=== PATIENT | female | born 1985 | race Hispanic/Latino ===

== ENCOUNTER 2018-01-06 22:02 | Day surgery (SDC) | payer OTHER ==
[2018-01-06 22:40] VITALS: BP 134/89; TEMP 99; BMI 38.4
--- NOTE | 2018-01-06 23:16 | PDOC.LDHP ---
Labor and Delivery H&P Chief complaint: contractions HPI: 32 y/o at 37w5d, patient of Dr. Jones, presents with ctx every 5-6 mins since after her appointment at 2pm. Was seen in clinic and reportedly 4-5/- 3 at that time. Denies VB, LOF, or decreased FM. ROS neg for HEENT, cv, pulm, gi, gu, neuro, psych, musculoskeletal, skin, or constitutional symptoms other than mentioned above. OB History Details: 2 prior term SVDs Current complications: none Past Medical History: None Current medications: pre- vitamins Previous surgical history: none Allergies/Adverse Reactions: Allergies Allergy/AdvReac Type Severity Reaction Status Date / Time cephalexin [From Keflex] Allergy Intermediate Hives Verified 01/06/18 22:34 - Physical Exam Vital signs reviewed and normal: yes General: NAD, resting Lungs: nonlabored breathing Abdomen: gravid Extremeties: no edema FHT: category 1 (145, mod variability, + accels, no decels) [place] contractions every: 5-6 mins - Vaginal Exam cm dilated: 4 Effacement: 50% Station: -3 - Assessment 32 y/o at 37w5d with no e/o active labor. status reassuring with reactive NST. - Plan -: D/c home with precautions. Advised to keep all appointments.
== END 2018-01-06 23:20 | disposition home or self-care (01) ==
LOC: L&D/OP 22:02
PROVIDERS: ATTEND Obstetrics & Gynecology
DX: O47.1 False labor at or after 37 completed weeks of gestation (principal); Z3A.37 37 weeks gestation of pregnancy; Z88.1 Allergy status to other antibiotic agents
CPT/HCPCS: 76815; 99282

== ENCOUNTER 2018-01-07 09:56 | Inpatient (IN) | payer MEDICAID, OTHER, SELFPAY ==
[2018-01-07] MEDS: Lactated Ringer's 1,000 ML IV SCH ×2 (10:46→12:37)
[2018-01-07 10:53] VITALS: BMI 37.3
[2018-01-07] MEDS ORDERED: Ondansetron HCl/PF 4 MG/2 ML Vial IVP PRN ×2 (11:03→14:57)
[2018-01-07] MEDS ORDERED: Acetaminophen 500 MG TAB PO PRN (11:03)
[2018-01-07] MEDS ORDERED: Promethazine HCl 25 MG/ML VIAL IM PRN (11:03)
[2018-01-07] MEDS ORDERED: Diphenoxylate HCl/Atropine Tablet PO PRN ×2 (11:03)
[2018-01-07] MEDS ORDERED: HYDROcodone/Acetaminophen 5/325 mg Tablet PO PRN ×2 (11:03)
[2018-01-07] MEDS ORDERED: Misoprostol 200 MCG TAB PR PRN (11:03)
[2018-01-07] MEDS ORDERED: Docusate 100 MG CAP PO PRN (11:03)
[2018-01-07] MEDS ORDERED: Lidocaine 1% (PF) 30 ML VIAL SC PRN (11:03)
[2018-01-07] MEDS ORDERED: NS / Oxytocin 40 units/1000ml 1,000 ML IV PRN (11:03)
[2018-01-07] MEDS ORDERED: Butorphanol Tartrate 1 MG/ML VIAL SLOW IVP PRN (11:03)
[2018-01-07] MEDS ORDERED: Ibuprofen 800 MG TAB PO PRN (11:03)
[2018-01-07 11:24] LABS: Hemoglobin 11.8 g/dL (12.0-16.0); Mean Corpuscular HGB CONC 34.5 g/dL (32.0-36.0); Mean Corpuscular Hemoglobin 26.8 pg (27.0-31.0); Mean Corpuscular Volume 77.5 fL (78.0-98.0); Mean Platelet Volume 7.8 fL (7.4-10.4); Platelet Count 271 thou/uL (130-400); RBC Distribution Width 13.4 % (11.5-14.5); Red Blood Cell (RBC) Count 4.41 mill/uL (4.20-5.40); White Blood Cell (WBC) Count 10.5 thou/uL (4.8-10.8)
[2018-01-07] MEDS ORDERED: Bupivacaine 0.5% 20 ML, fentaNYL Citrate/PF 400 MCG in Sodium Chloride 0.9% 72 ML EPIDURAL SCH (11:45)
[2018-01-07] MEDS ORDERED: DISCONTINUE ALL PREVIOUS NARCOTICS FS SCH (11:45)
[2018-01-07 12:12] LABS: HBSAg Index 0.19 S/CO (0-0.99); Hep B Surf Ag Non-Reactive S/CO (NonReactive); Syphilis Antibody Nonreactive (Nonreactive); Syphilis Antibody Index 0.04 S/CO (<1.00 Non-Reactive)
[2018-01-07] MEDS ORDERED: Fentanyl 100 MCG/2 ML VIAL ONE (12:30)
[2018-01-07] MEDS: NS / Oxytocin 40 units/1000ml 1,000 ML IV SCH ×2 (14:42→17:29)
[2018-01-07] MEDS ORDERED: Benzocaine/Menthol 20-0.5% 60 ML CAN TOP PRN (14:57)
[2018-01-07] MEDS ORDERED: Bisacodyl 10 MG SUPP PR PRN (14:57)
[2018-01-07] MEDS ORDERED: Zolpidem Tartrate 5 MG TAB PO PRN (14:57)
[2018-01-07] MEDS ORDERED: diphenhydrAMINE 25 MG CAP PO PRN (14:57)
[2018-01-07] MEDS ORDERED: Adacel (T-DAP) 0.5 ML VIAL IM ONE (14:57)
[2018-01-07] MEDS ORDERED: Lanolin Ointment 7 GM TUBE TOP PRN (14:57)
[2018-01-07] MEDS ORDERED: Preparation H Ointment 28 GM TUBE PR PRN (14:57)
[2018-01-07] MEDS ORDERED: Acetaminophen/Codeine 30-300mg Tablet PO PRN ×2 (14:57→21:13)
[2018-01-07] MEDS ORDERED: Milk Of Magnesia 30 ML UDCUP PO PRN (14:57)
[2018-01-07 19:06] LABS: HIV (1/2) Antibody/Antigen Non-Reactive (NonReactive); HIV 1/2 INDEX 0.06 S/CO (<1.00)
[2018-01-07] MEDS: Ferrous Sulfate 325 MG TAB PO SCH (21:24)
[2018-01-07] MEDS: Ibuprofen 800 MG TAB PO SCH (22:01)
[2018-01-07] MEDS: Docusate Calcium (SURFAK) 240 MG CAP PO SCH (22:01)
[2018-01-08] MEDS ORDERED: Lidocaine 2% PF Inj 2 ML VIAL ONE (03:41)
[2018-01-08] MEDS ORDERED: Bupivacaine/Epinephrine 0.25% 30 ML VIAL ONE (03:41)
[2018-01-08] MEDS ORDERED: Bupivacaine HCl 0.5%/Epinephrine 1:200,000/PF 30 ml Vial ONE (03:41)
[2018-01-08] MEDS: Ibuprofen 800 MG TAB PO SCH ×2 (05:33→13:54)
[2018-01-08 05:49] LABS: Mean Corpuscular HGB CONC 34.7 g/dL (32.0-36.0); Mean Corpuscular Hemoglobin 27.3 pg (27.0-31.0); Mean Corpuscular Volume 78.8 fL (78.0-98.0); Mean Platelet Volume 7.8 fL (7.4-10.4); Platelet Count 219 thou/uL (130-400); RBC Distribution Width 13.1 % (11.5-14.5); Red Blood Cell (RBC) Count 3.66 mill/uL (4.20-5.40); White Blood Cell (WBC) Count 12.2 thou/uL (4.8-10.8)
[2018-01-08] MEDS: Ferrous Sulfate 325 MG TAB PO SCH (07:47)
[2018-01-08] MEDS ORDERED: Prenatal Vitamin 1 TAB PO SCH (09:00)
[2018-01-08] MEDS: Docusate Calcium (SURFAK) 240 MG CAP PO SCH (09:01)
[2018-01-08] MEDS ORDERED: Ondansetron HCl/PF 4 MG/2 ML Vial IVP PRN (11:08)
[2018-01-08] MEDS ORDERED: Lactated Ringer's 500 ML IV PRN (11:08)
[2018-01-08] MEDS ORDERED: diphenhydrAMINE 50 MG/ML VIAL IVP PRN (11:08)
[2018-01-08] MEDS ORDERED: Promethazine HCl 25 MG/ML VIAL IM PRN (11:08)
[2018-01-08] MEDS ORDERED: Eucerin (Mineral Oil/Petrolatum,White) 30 gm Jar TOP PRN (11:08)
[2018-01-08] MEDS ORDERED: Naloxone HCl 0.4 mg/ml Vial IVP PRN ×2 (11:08)
[2018-01-08] MEDS ORDERED: Acetaminophen 325 MG TAB PO PRN (11:08)
[2018-01-08] MEDS ORDERED: ePHEDrine/0.9% NaCl/PF SYRINGE 50 mg/10 ml SLOW IVP PRN (11:08)
[2018-01-08] MEDS ORDERED: fentaNYL Citrate/PF 400 MCG, Bupivacaine 0.5% 20 ML in Sodium Chloride 0.9% 72 ML EPIDURAL SCH (11:15)
[2018-01-08] MEDS ORDERED: Communication Order-Pharmacy FS SCH (11:15)
[2018-01-08 13:14] VITALS: BP 123/76; TEMP 98.2
== END 2018-01-08 17:51 | disposition home or self-care (01) | DRG 775 ==
LOC: L&D 09:56 → L&D/OP 09:56 → EDSTATUS 10:25 → 3SE 18:48
PROVIDERS: ADMIT Obstetrics & Gynecology; ATTEND Obstetrics & Gynecology
PROC: 10E0XZZ Delivery of Products of Conception, External Approach (ICD-10-PCS; principal; 2018-01-07)
DX: O80 Encounter for full-term uncomplicated delivery (principal); Z3A.39 39 weeks gestation of pregnancy; Z37.0 Single live birth
CPT/HCPCS: 36415; 51702; 85027; 86762; 86780; 86850; 86900; 86901; 87340; 87389; J0670; J3010; J3490; J7050